=== PATIENT | female | born 1955 | race Caucasian/White ===

== ENCOUNTER 2023-07-05 01:49 | Emergency (ER) | payer MEDICARE ==
[~2023-07-05] VITALS: Ht 162.6 cm; Wt 100.0 kg
[2023-07-05] MEDS: ibuprofen tablet 400 MG TABLET PO ONE (03:13)
[2023-07-05] MEDS: HYDROcodone/acetaminophen 10/325mg tab PO ONE (03:14)
[2023-07-05] MEDS: ondansetron 4mg rapidly disintigrating tab PO ONE (03:15)
[2023-07-05] MEDS ORDERED: NAPR-56 PO (03:54)
[2023-07-05] MEDS ORDERED: LIDO1ADH78 TOP (03:54)
[2023-07-05] MEDS ORDERED: CYCL-1 PO (03:54)
[2023-07-05] MEDS ORDERED: ACET-1008 PO (03:54)
[2023-07-05 06:30] VITALS: BP 110/60; PULSE 90; RESP 18; TEMP 98.1; O2SAT 92
== END 2023-07-05 06:35 | disposition home or self-care (01) ==
LOC: ER 01:50
DX: S42.201A Unspecified fracture of upper end of right humerus, initial encounter for closed fracture (principal); I10 Essential (primary) hypertension; F17.200 Nicotine dependence, unspecified, uncomplicated; Z88.2 Allergy status to sulfonamides; Z79.899 Other long term (current) drug therapy; Y09 Assault by unspecified means; Y93.89 Activity, other specified; Y92.89 Other specified places as the place of occurrence of the external cause; Y99.8 Other external cause status
CPT/HCPCS: 73030; 73060; 99285; A4565